=== PATIENT | female | born 1935 | race Hispanic/Latino ===

== ENCOUNTER 2017-05-04 03:15 | Inpatient (IN) | payer OTHER ==
[~2017-05-04] VITALS: Ht 175.3 cm; Wt 83.9 kg
[2017-05-04] VITALS (29 sets, daily range): BP systolic 64–156; BP diastolic 38–110
[~2017-05-04 03:15] MED LIST: ALEVE220 M1 PO; CALCIUM WITH V1 EAC1 PO; COQ10 SG 100 S1 EACH PO; DORZOLAMIDE-TIM10 ML OU; ENALAPRIL MALEA20 MG PO; FISH OIL PO; GEMFIBROZIL600 MG PO; HYDROCHLOROTHIA25 MG PO; MAGNESIUM PO; METOPROLOL TART50 MG PO; OMEPRAZOLE40 MG PO; ONGLYZA5 MG PO; SIMVASTATIN20 MG PO; VICODIN HP 10-1 EACH PO
[2017-05-04] MEDS ORDERED: SODIUM CHLORIDE 0.9% 1000ML 1,000 ML IV ONE ×3 (03:30→22:15)
[2017-05-04] MEDS ORDERED: ALBUTEROL/IPRATROPIUM 3 ML NEB NEB ONE (03:30)
[2017-05-04] MEDS ORDERED: METHYLPREDNISOLONE SOD SUCC 125 MG/2ML VIAL IV ONE (03:45)
[2017-05-04 03:46] LABS: BASOPHILS % 0.1 % (0.0-1.0); HEMATOCRIT 36.1 % (34.2-44.1); HEMOGLOBIN 12.1 g/dL (12.0-16.0); LYMPHOCYTES # (AUTO) 0.8 (1.0-3.2); LYMPHOCYTES % 7.7 % (18.0-39.1); MEAN CORPUSCULAR HEMOGLOBIN 30.6 pg (28-32); MEAN CORPUSCULAR HGB CONC 33.5 g/dL (31-35); MEAN CORPUSCULAR VOLUME 91.2 fL (81-99); MONOCYTES # (AUTO) 0.8 (0.2-0.8); MONOCYTES % 7.7 % (4.4-11.3); NEUTROPHILS # (AUTO) 8.4 (2.1-6.9); NEUTROPHILS % 82.6 % (38.7-80.0); PLATELET COUNT 488 x10e3/uL (140-360); RED BLOOD COUNT 3.96 x10e6/uL (3.6-5.1); RED CELL DISTRIBUTION WIDTH 12.8 % (11.7-14.4)
[2017-05-04 03:53] LABS: BILIRUBIN,URINE NEGATIVE (NEGATIVE); KETONES,URINE NEGATIVE (NEGATIVE); LEUKOCYTE ESTERASE ,URINE NEGATIVE (NEGATIVE); NITRITE,URINE NEGATIVE (NEGATIVE); URINE UROBILINOGEN 0.2 mg/dL (0.2 - 1)
[2017-05-04 03:54] LABS: CLARITY,URINE SL CLOUDY (CLEAR); COLOR,URINE YELLOW (YELLOW); PROTEIN,URINE DIPSTICK 1+ (NEGATIVE)
[2017-05-04 04:04] LABS: AMORPHOUS SEDIMENT,URINE MANY (FEW); BACTERIA,URINE MODERATE /HPF; EPITHELIAL CELLS,URINE RARE /LPF; RBC,URINE 0-5 /HPF (0-5); WBC,URINE (MAN) 0-5 /HPF (0-5)
[2017-05-04] MEDS ORDERED: ALBUTEROL SULF 0.083% NEB SOLN 3 ML NEB NEB STA (04:04)
[2017-05-04 04:05] LABS: ALBUMIN 2.1 g/dL (3.5-5.0); ALBUMIN/GLOBULIN RATIO 0.4 (0.8-2.0); ANION GAP 23.1 mmol/L (8-16); CALCIUM 9.8 mg/dL (8.4-10.2); CREATININE, SERUM 2.59 mg/dL (0.57-1.11); POTASSIUM 4.1 mmol/L (3.5-5.1)
[2017-05-04] MEDS ORDERED: TOUJEO SC (04:10)
[2017-05-04 04:11] LABS: CREATINE KINASE MB 2.6 ng/mL (0.00-5.00); TROPONIN I 0.024 ng/mL (0-0.300)
[2017-05-04] MEDS ORDERED: GLIPIZIDE5 MG PO (04:11)
[2017-05-04] MEDS ORDERED: OMEPRAZOLE40 MG PO (04:11)
[2017-05-04] MEDS ORDERED: GEMFIBROZIL600 MG PO (04:11)
[2017-05-04] MEDS ORDERED: SIMVASTATIN20 MG PO (04:12)
[2017-05-04] MEDS ORDERED: METOPROLOL TART25 MG PO (04:12)
[2017-05-04] MEDS ORDERED: ALENDRONATE SOD70 MG PO (04:13)
[2017-05-04] MEDS ORDERED: DIOVAN HCT 1601 EACH PO (04:13)
[2017-05-04] MEDS ORDERED: LATANOPROST2.5 ML OP (04:14)
[2017-05-04] MEDS ORDERED: INSULIN REGULAR, HUMAN 3ML VL 1 UNIT in SODIUM CHLORIDE 0.9% 100 ML IV SCH ×2 (04:15)
[2017-05-04] MEDS ORDERED: DORZOLAMIDE-TIM10 ML OP (04:15)
[2017-05-04] MEDS ORDERED: POTASSIUM CHLORIDE 20MEQ/100ML 200 ML IV PRN (04:15)
[2017-05-04] MEDS ORDERED: INSULIN DETEMIR 100 UNIT/ML PEN SQ PRN (04:15)
[2017-05-04] MEDS ORDERED: MOTRIN200 MG PO (04:16)
[2017-05-04] MEDS ORDERED: SODIUM CHLORIDE 0.9% 100 ML 100 ML ONE (04:16)
[2017-05-04] MEDS ORDERED: INSULIN REGULAR, HUMAN 100 UNIT/1 ML 3ML VIAL ONE ×2 (04:18→08:29)
--- NOTE | 2017-05-04 04:20 | Diagnostic Imaging Report ---
CHEST SINGLE (PORTABLE), 05/04/2017 3:29 AM Technique: CHEST SINGLE (PORTABLE) Comparison: 12/08/2012 Clinical history: Cough, shortness of breath Findings: See Impression Impression: 1. Mildly enlarged cardiomediastinal silhouette, likely accentuated by portable technique 2. Diffuse bilateral heterogeneous pulmonary opacities, which may reflect infection and/or edema. More nodular 3 cm right midlung masslike opacity/consolidation. Attention on follow-up upright PA and lateral. 3. Probable small pleural effusions. Signed by: Dr Monique Michael MD on 05/04/2017 4:16 AM
[2017-05-04] MEDS: MAGNESIUM SULF 1GRAM/DEXTROSE 100 ML IV PRN ×2 (04:28→14:00)
[2017-05-04] MEDS: SODIUM CHLORIDE 0.9% 1000ML 1,000 ML IV SCH ×5 (04:28→19:48)
[2017-05-04] MEDS ORDERED: FUROSEMIDE INJ 10 MG/ML 4 ML VIAL IV ONE (04:30)
[2017-05-04] MEDS ORDERED: FUROSEMIDE INJ 10 MG/ML 4 ML VIAL ONE (04:36)
--- NOTE | 2017-05-04 05:33 | Diagnostic Imaging Report ---
EXAM: CT CHEST WO DATE: 05/04/2017 4:27 AM INDICATION: Cough, shortness of breath. \S\eval changes seen on cxr \S\Y COMPARISON: None TECHNIQUE: Multidetector CT scanning of the chest was performed. Coronal and sagittal multiplanar reformations were obtained. IV Contrast: None FINDINGS: LUNGS AND PLEURA: There are extensive bilateral consolidative opacities most notable in the left lower lobe and to a lesser extent right middle and lower lobes and lingula. Multifocal nodular opacities. No pleural effusion. HEART, MEDIASTINUM, VESSELS: Normal heart size without pericardial effusion. Severe coronary artery and moderate aortic atherosclerotic calcification. Main pulmonary artery is upper limits of normal, 3 cm UPPER ABDOMEN: Unremarkable. MUSCULOSKELETAL: Chronic right proximal humeral fracture deformity with severe glenohumeral degenerative change. IMPRESSION: Multifocal pneumonia. Signed by: Dr Monique Michael MD on 05/04/2017 5:29 AM
[2017-05-04] MEDS ORDERED: LEVOFLOXACIN 500MG/D5W 100ML 100 ML IV STA (05:42)
[2017-05-04] MEDS ORDERED: DORZOLAMIDE/TIMOLOL (OPTH SOL) 10 ML DRPETTE OP PRN (05:45)
[2017-05-04] MEDS ORDERED: LEVOFLOXACIN 750MG/DEXTROSE PREMIX BAG 150ML IV SCH (05:45)
[2017-05-04] MEDS ORDERED: ONDANSETRON HCL INJ 2 MG/ML VIAL IV PRN (05:45)
[2017-05-04 07:52] LABS: ANION GAP 19.4 mmol/L (8-16); CALCIUM 9.2 mg/dL (8.4-10.2); CREATININE, SERUM 2.38 mg/dL (0.57-1.11); MAGNESIUM 1.5 MG/DL (1.3-2.1); POTASSIUM 3.4 mmol/L (3.5-5.1)
[2017-05-04] MEDS ORDERED: SODIUM CHLORIDE 0.9% 50ML 50 ML ONE (08:30)
[2017-05-04] MEDS: INSULIN REGULAR, HUMAN 3ML VL 100 UNIT in SODIUM CHLORIDE 0.9% 99 ML IV SCH ×4 (08:31→14:49)
[2017-05-04] MEDS: DEXTROSE 5%/0.45% SOD CHL 1,000 ML IV SCH ×2 (08:59→14:46)
[2017-05-04] MEDS ORDERED: METOPROLOL TARTRATE 25 MG TAB PO SCH (09:00)
[2017-05-04] MEDS ORDERED: VALSARTAN PO SCH (09:00)
[2017-05-04] MEDS ORDERED: PANTOPRAZOLE SOD 40 MG TABEC PO SCH (09:00)
[2017-05-04] MEDS ORDERED: HYDROCHLOROTHIAZIDE PO SCH (09:00)
[2017-05-04] MEDS ORDERED: VALSARTAN 160 MG TAB PO SCH (09:00)
[2017-05-04] MEDS ORDERED: HYDROCHLOROTHIAZIDE 25 MG TAB PO SCH (09:00)
[2017-05-04] MEDS ORDERED: [UNRECOGNIZED DRUG - OTHER] PO SCH (09:00)
[2017-05-04] MEDS: ALBUTEROL SULF 0.083% NEB SOLN 3 ML NEB NEB SCH ×3 (09:02→23:43)
[2017-05-04] MEDS: IPRATROPIUM BROMIDE 0.02% 2.5 ML NEB NEB SCH ×3 (09:06→19:44)
[2017-05-04] MEDS: GEMFIBROZIL 600 MG TAB PO SCH (10:07)
[2017-05-04] MEDS: DORZOLAMIDE/TIMOLOL (OPTH SOL) 10 ML DRPETTE OP SCH ×2 (10:08→22:10)
[2017-05-04 10:57] LABS: ABG PCO2 40 mmHg (41-51); ABG PH 7.19 (7.31-7.41); ABG PO2 85 mmHg (80-105)
[2017-05-04 10:58] LABS: ABG HCO3 15 mmol/L (23-28)
--- NOTE | 2017-05-04 11:52 | Diagnostic Imaging Report ---
PROCEDURE:CHEST SINGLE (PORTABLE) TECHNIQUE:2 sequential portable AP views chest INDICATION:Postintubation COMPARISON:[facility], , CHEST SINGLE (PORTABLE), 05/04/2017, 1:38. FINDINGS: Interval intubation. The initial radiograph shows the endotracheal tube within the right mainstem bronchus; it was subsequently retracted to 3.3 cm above the matthias. Bilateral airspace opacities (left greater than right) with interval progression relative to May 04 at 1:38 AM. Stable cardiomegaly and central vascular enlargement. Intact skeleton; healed right humerus fracture associated degenerative changes at the glenohumeral joint. CONCLUSION: 1. Interval intubation with the endotracheal tube tip final position about 3.3 cm from the matthias. 2. Interval progression of multifocal airspace opacities relative to 1:38 AM suggesting evolving pneumonia developing pulmonary edema. 3. Stable cardiomegaly. No sizable pleural effusion. Dictated by: Alfa Maynard M.D. on 05/04/2017 at 12:00 Electronically approved by: Alfa Maynard M.D. on 05/04/2017 at 12:00
[2017-05-04] MEDS: FENTANYL CITRATE INJ 2,000 MCG in SODIUM CHLORIDE 0.9% 250ML 210 ML IV PRN (12:00)
[2017-05-04 12:07] LABS: ANION GAP 15.8 mmol/L (8-16); CALCIUM 8.7 mg/dL (8.4-10.2); CREATININE, SERUM 2.03 mg/dL (0.57-1.11); MAGNESIUM 1.4 MG/DL (1.3-2.1); POTASSIUM 3.8 mmol/L (3.5-5.1)
[2017-05-04] MEDS ORDERED: MIDAZOLAM HCL 2 MG/2 ML VIAL ONE (12:14)
[2017-05-04] MEDS: MIDAZOLAM HCL 2 MG/2 ML VIAL IV PRN ×2 (12:18→22:57)
[2017-05-04] MEDS ORDERED: VASOPRESSIN 100 UNIT in DEXTROSE 5% 100ML 100 ML IV SCH (12:30)
[2017-05-04 13:09] LABS: TROPONIN I 0.023 ng/mL (0-0.300)
[2017-05-04] MEDS ORDERED: SODIUM BICARBONATE 8.4% 50 ML VIAL IV STA ×2 (13:11→13:40)
[2017-05-04 13:14] LABS: ABG PCO2 42 mmHg (41-51); ABG PH 7.18 (7.31-7.41)
[2017-05-04 13:15] LABS: ABG HCO3 16 mmol/L (23-28); ABG PO2 112 mmHg (80-105)
[2017-05-04] MEDS ORDERED: SODIUM BICARBONATE 8.4% 150 ML in SODIUM CHLORIDE 0.9% 1000ML 1,000 ML IV ONE (13:30)
[2017-05-04] MEDS ORDERED: MAGNESIUM SULF 1GRAM/DEXTROSE 100 ML IV ONE (13:34)
[2017-05-04] MEDS ORDERED: SODIUM BICARBONATE 8.4% 150 ML in DEXTROSE 5% 1000ML 1,000 ML IV ONE ×2 (13:45→22:00)
--- NOTE | 2017-05-04 13:56 | Consultation ---
DATE OF CONSULTATION: May 04, 2017 CRITICAL CARE CONSULTATION REASON FOR THE CONSULT: ICU management, shortness of breath, DKA. HISTORY OF PRESENT ILLNESS: Ms. Auguste is an 81-year-old female who presented to the emergency room with the complaints of shortness of breath, cough going on for 4 days, progressively getting worse. She reports that the symptoms started 4 days ago with cough and then she started having shortness of breath. She is diabetic and was unable to take her insulin because she was too sick to take it. She is having chest discomfort by persistent coughing in the lower part of the chest, and she is having nausea but denies any abdominal pain or focal weakness. REVIEW OF SYSTEMS GENERAL: Denies any fever or chills. HEAD: Denies any head trauma or head injury. ENT: Denies any earache, nosebleed, throat pain. CVS: Chest discomfort. RESPIRATORY: Shortness of breath. GI: Nausea but no vomiting. REST OF THE REVIEW OF SYSTEMS: Negative except as in history of present illness. PAST MEDICAL HISTORY: Diabetes, hypertension. PAST SURGICAL HISTORY: Unknown. FAMILY HISTORY AND SOCIAL HISTORY: She is a lifelong nonsmoker. She lives by herself. She does not drink. PHYSICAL EXAMINATION VITALS: Temperature is 98. Pulse of 120 to 130. Blood pressure has been 150/57. Respiratory rate is around 28 to 36 per minute. She is on BiPAP with FIO2 of 75% and satting of 14/8. She is in moderate to severe respiratory distress. HEENT: Head atraumatic, normocephalic. Pupils are reactive. NECK: Supple. No JVD. Thyroid not enlarged. CHEST: Crackles bilaterally. HEART: S1 and S2 audible. ABDOMEN: Soft, nontender, nondistended. Bowel sounds audible. No hepatosplenomegaly. EXTREMITIES: No clubbing, cyanosis or edema. NEUROLOGICALLY: She is awake and alert, in moderate respiratory distress. LABS: White count of 10.1, hemoglobin 12.1, platelets 488. Chemistry: Sodium 139, potassium 3.4, chloride 108, BUN 61. Creatinine 2.38, was 2.59 at 3:30 a.m., and 7:30 a.m. it is 2.38. Glucose of 507. Anion gap of 19.4. Magnesium 1.2, second one is 1.5. CT of the chest: I reviewed the images, and it is showing multilobar pneumonia, dense consolidation in left lower lobe and right middle lobe and right lower lobe. Blood cultures and urine cultures are pending. ASSESSMENT/PLAN: Ms. Auguste is an 81-year-old female who presented with worsening shortness of breath. CT of the chest showing multilobar pneumonia. Labs are suggestive of acute kidney injury along with diabetic ketoacidosis with increased anion gap. CURRENT PROBLEMS 1. Multilobar pneumonia and sepsis with lactic acidosis and tachycardia. 2. Diabetic ketoacidosis. 3. Acute kidney injury, likely prerenal, dehydration. 4. History of hypertension. 5. Acute hypoxic respiratory failure. PLAN 1. Currently the patient's respiratory status is extremely precarious. I have increased the FIO2 to 70% and changed the IPAP and EPAP settings, observed her at bedside for 10 to 15 minutes, and patient reports that she is feeling somewhat better. However, I have explained to her and her daughter that she may need endotracheal intubation and ventilatory support if she does not improve. 2. Continue the patient on DKA protocol with IV insulin infusion along with IV fluids. 3. Electrolytes will be replaced per the protocol. Magnesium and potassium have been replaced. 4. Renal failure is improving with IV hydration. Will give another liter of normal saline bolus. 5. Patient has been resumed on diuretics, which I will discontinue. 6. I will start the patient on IV Zosyn along with IV Levaquin for multilobar pneumonia. Patient is diabetic, and a possibility of resistant organisms is there. 7. If okay with the primary team, will consider consulting Endocrinology. Critical care time spent, 50 minutes. Job#: [id number] EV
[2017-05-04] MEDS ORDERED: PIPER-TAZ 3.375 GM 50 ML IV SCH (14:00)
--- NOTE | 2017-05-04 14:15 | Diagnostic Imaging Report ---
PROCEDURE:CHEST XRAY LINE PLACEMENT COMPARISON:Chest x-ray, 05/04/17, 0910 hrs.. INDICATIONS:CENTRAL LINE PLACEMENT FINDINGS: Lines and tubes: Interval placement right IJ catheter extending to mid SVC. Stable position of ET tube. Stable moderately enlarged cardiac silhouette. There is increased airspace opacity in the mid and lower left lung and at the medial right lung base. Stable opacity in the right midlung adjacent to the minor fissure. There may be a small left pleural effusion. No pneumothorax. Upper abdomen unremarkable with no free air. No acute bony abnormality. CONCLUSION: 1. Interval placement of right IJ catheter extending to mid SVC. No pneumothorax. Stable appearance of ET tube. 2. Increased airspace opacity in the left mid and lower lung and at the right lung base may represent worsening edema or pneumonia. There may be an underlying effusion on the left. Dictated by: Esvin Gabriel M.D. on 05/04/2017 at 14:24 Electronically approved by: Esvin Gabriel M.D. on 05/04/2017 at 14:24
--- NOTE | 2017-05-04 14:15 | Diagnostic Imaging Report ---
Non-tunneled Central Venous Catheter Placement May 04, 2017 Pre-Procedure Diagnosis: Multiorgan failure. Post-procedure Diagnosis:Multiorgan failure. Pta: Sean Maynard Funeral Greeter: None Sedation: None. 1% lidocaine local anesthesia. Estimate blood loss: <5 mL Blood administered: None Complications: None Implants/Grafts: 16 cm 7-Turkmen 3 lumen CVC Specimen: None Procedure: Informed consent was obtained and the patient positioned supine in the Emergency Department. A timeout was performed, followed by preliminary ultrasound of the right internal jugular vein (see findings below). The right neck was prepped and draped in standard fashion. Using real-time ultrasound guidance a 18 gauge vascular needle was used to access the right internal jugular vein. An image was stored in the electronic medical record. A wire was advanced while monitoring the patient's cardiac rhythm and the needle exchanged for a non-tunneled central venous catheter using standard Salinger technique. At the end of the procedure the catheter was flushed, secured to the skin and a sterile dressing applied. The patient tolerated the procedure well and without immediate complication. Findings: Patent right internal jugular vein as demonstrated by normal ultrasound compressibility. Impression: Successful placement of a non-tunneled right internal jugular central venous catheter using ultrasound guidance. This report was generated with voice-recognition technology. Errors in network controller can occur. Please interpret accordingly and contact a radiologist if there are any questions regarding the report. Signed by: Dr. Alfa Maynard M.D. on 05/04/2017 2:12 PM
--- NOTE | 2017-05-04 14:15 | Diagnostic Imaging Report ---
Non-tunneled Central Venous Catheter Placement May 04, 2017 Pre-Procedure Diagnosis: Multiorgan failure. Post-procedure Diagnosis:Multiorgan failure. Varnish Maker: Sean Maynard Bulk Intake Worker: None Sedation: None. 1% lidocaine local anesthesia. Estimate blood loss: <5 mL Blood administered: None Complications: None Implants/Grafts: 16 cm 7-Welsh 3 lumen CVC Specimen: None Procedure: Informed consent was obtained and the patient positioned supine in the Emergency Department. A timeout was performed, followed by preliminary ultrasound of the right internal jugular vein (see findings below). The right neck was prepped and draped in standard fashion. Using real-time ultrasound guidance a 18 gauge vascular needle was used to access the right internal jugular vein. An image was stored in the electronic medical record. A wire was advanced while monitoring the patient's cardiac rhythm and the needle exchanged for a non-tunneled central venous catheter using standard Salinger technique. At the end of the procedure the catheter was flushed, secured to the skin and a sterile dressing applied. The patient tolerated the procedure well and without immediate complication. Findings: Patent right internal jugular vein as demonstrated by normal ultrasound compressibility. Impression: Successful placement of a non-tunneled right internal jugular central venous catheter using ultrasound guidance. This report was generated with voice-recognition technology. Errors in checker cashier can occur. Please interpret accordingly and contact a radiologist if there are any questions regarding the report. Signed by: Dr. Alfa Maynard M.D. on 05/04/2017 2:12 PM
[2017-05-04] MEDS: AZTREONAM (AZACTAM) 1 GM in WATER STERILE 10ML VIAL 10 ML IV SCH ×2 (14:16→22:56)
[2017-05-04] MEDS ORDERED: ACETAMINOPHEN 1000 MG/100 ML IV STA (14:18)
[2017-05-04] MEDS ORDERED: INSULIN REGULAR, HUMAN 3ML VL 300 UNIT in SODIUM CHLORIDE 0.45% 100 ML 300 ML IV SCH ×2 (14:23)
[2017-05-04] MEDS ORDERED: DEXTROSE 50% SYRINGE 50 ML IV PRN ×2 (14:30)
[2017-05-04] MEDS ORDERED: ACETAMINOPHEN 1000 MG/100 ML IV PRN (14:30)
--- NOTE | 2017-05-04 14:53 | Consultation ---
DATE OF CONSULTATION: May 04, 2017 ENDOCRINE CONSULTATION This is a patient of Dr. Laughlin and Dr. Dacosta. Thank you very much for referring this patient. HISTORY OF PRESENT ILLNESS: This is an 81-year-old female who is referred to me for evaluation of diabetic ketoacidosis. The patient is intubated at this time. Most of the history is available from the chart and from the patient's son. Patient is a known diabetic for almost 15 to 20 years and takes a combination of oral hypoglycemics at home including the Toujeo 28 at bedtime. She is also on metformin and glipizide 5 mg twice daily. Patient was doing relatively all right when about 4 to 5 weeks back she started having cough, chest congestion, which is getting progressively worse. She also has history of hypertension and hyperlipidemia. At the time of admission, her blood sugar was 708, her anion gap was 23.1 which is down to 15.8, and her BUN and creatinine were elevated. Her lactic acid level was also 625. PHYSICAL EXAMINATION: GENERAL: Today the patient is intubated. She is sedated. VITAL SIGNS: Her heart rate is around 78. Blood pressure 130/80 mmHg. HEENT: Examination essentially unremarkable. Thyroid is palpable. Clinically she is near euthyroid. CHEST: Bilateral vesicular breathing. She has mild bronchospasm. CARDIAC: Both 1st and 2nd heart sounds. There is no 3rd or 4th heart sound. Ejection sound grade 2/6. EXTREMITIES: Patient has evidence of diabetic sensory neuropathy in both lower extremities. CLINICAL IMPRESSION: 1. Diabetes mellitus type 2. 2. Diabetic ketoacidosis. 3. Pneumonia. 4. History of hypertension and hyperlipidemia. The plan at this time is to do a hemoglobin A1c, thyroid function test, and put her on insulin drip protocol. I would avoid giving her too much bicarb because of her hyponatremia. Monitor her blood sugars closely. Thanks again for referring this patient. I will be following this patient with you. Job#: [id number] ARTEM
[2017-05-04] MEDS ORDERED: INSULIN REGULAR, HUMAN 3ML VL 100 UNIT in SODIUM CHLORIDE 0.45% 100 ML 99 ML IV SCH ×2 (15:00)
[2017-05-04 15:01] LABS: FREE T4 (FREE THYROXINE) 0.98 ng/dL (0.8-1.8); THYROID STIMULATING HORMONE 0.33 uIU/mL (0.350-4.940)
--- NOTE | 2017-05-04 15:05 | Operative Report ---
DATE OF PROCEDURE: May 04, 2017 PREOPERATIVE DIAGNOSIS: Acute hypoxic respiratory failure. POSTOPERATIVE DIAGNOSIS: Acute hypoxic respiratory failure. PROCEDURE IN DETAIL: After induction with 30 mg of IV etomidate and 100 mg of succinylcholine, the patient was intubated. With a max 4 blade, first attempt with 7.5 endotracheal tube. End-tidal CO2 was observed. Postprocedure chest x-ray showed right main intubation. Endotracheal tube was pulled back 20 cm, and repeat x-ray is showing good position of the endotracheal tube. COMPLICATIONS: None. Job#: [id number] MN
--- NOTE | 2017-05-04 16:15 | Consultation ---
DATE OF CONSULTATION: May 04, 2017 NEPHROLOGY CONSULTATION REASON FOR CONSULTATION: Acute kidney injury, metabolic acidosis. This is an 81-year-old female who is known to have multiple medical problems including hypertension, diabetes and diastolic CHF. She was diagnosed with diabetes almost 4 years ago and recently, almost 2 years ago, was switched to insulin. In the last couple of weeks, she and her brother who live together have been sick with myalgias and cough. She has been having a productive cough with yellowish, greenish sputum, and she had a fever a few days ago. She felt subjective fever with sweats. She has been getting worse with shortness of breath, and she came for further evaluation. She was found to be hypoxic and with DKA. She got intubated by the pulmonary team. The creatinine was elevated with metabolic acidosis, and thus we are consulted. Currently, the patient is sedated on fentanyl and intubated. No GI or complaints in the last few weeks. PAST MEDICAL HISTORY: As mentioned above. PAST SURGICAL HISTORY: Status post hysterectomy. SOCIAL HISTORY: No smoking, alcohol or IV drug abuse. ALLERGIES: PENICILLIN, WITH RASH. FAMILY HISTORY: Positive for hypertension and diabetes. PHYSICAL EXAMINATION VITALS: Today, temperature 99.9, heart rate 106, blood pressure 92/57. GENERAL APPEARANCE: No acute distress. Intubated and sedated. HEAD, EARS, EYES, NECK: No lymphadenopathy. HEART: Regular rate and rhythm. LUNGS: Bilateral rales. ABDOMEN: Soft, nontender. EXTREMITIES: No edema. LABS: White count 10, hemoglobin 12.1. She had sodium 140, Potassium was 3.4 on admission, now 3.8. CO2 was 13, now 15. Her BUN is 59, and creatinine is coming down from 2.59 to 2.03. Her glucose on admission was 708, and it is coming down on insulin drip. A1c is 9. Calcium 8.7, magnesium 1.4. LFTs are normal. Troponin is 0.02. BNP is 498. TSH 0.3. Albumin 2.1. Cultures have been sent. IMAGING: Suggestive of multifocal pneumonia. ASSESSMENT AND PLAN 1. Acute kidney injury. The patient has a baseline of chronic kidney disease, stage 3. She might have been following with Dr. Dover as per her daughter. We are going to check our clinic records. 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 There might be slight decline in the setting of sepsis and pneumonia and diabetic ketoacidosis. The patient is on intravenous fluids, and her creatinine is already improving. She is making good urine output. We are going to check fractional excretion of sodium and renal ultrasound. Avoid nephrotoxins. As I look at the records, she was also taking ibuprofen p.r.n. for the fever and myalgias, so we will hold any nonsteroidal anti-inflammatory drugs. We are going to check serial lab work and electrolytes. 2. Diabetic ketoacidosis. The patient has an insulin drip. 3. Metabolic acidosis. To be started on IV bicarbonate with serial q.4 h. BMP and follow up closely. 4. Multifocal pneumonia on antibiotics. Pulmonary is on the case. She got intubated, given hypoxia on antibiotics. 5. Hypertension on admission. However, after intubation and being on fentanyl, the blood pressures are on the low side. Monitor closely. Give IV fluids. 6. Volume status. The patient is making urine. We are going to add strict ins and outs and monitor urine output, given the patient is getting aggressive IV hydration. Currently the patient is intubated, given respiratory failure with hypoxia. She is DKA on insulin drip. Give aggressive IV resuscitation with IV bicarbonate. Monitor electrolytes. Repeat potassium and magnesium aggressively and monitor closely. Also check for influenza A and B as the patient and other family members have been having similar symptoms recently. Thank you for the consult. We will update the primary team for further recommendations. Job#: [id number]
[2017-05-04 18:42] LABS: ANION GAP 14.9 mmol/L (8-16); CALCIUM 8.1 mg/dL (8.4-10.2); CREATININE, SERUM 1.88 mg/dL (0.57-1.11); MAGNESIUM 1.4 MG/DL (1.3-2.1); POTASSIUM 3.9 mmol/L (3.5-5.1)
[2017-05-04] MEDS ORDERED: ETOMIDATE 2 MG/ML 10 ML INJ IV ONE (18:52)
[2017-05-04] MEDS ORDERED: SUCCINYLCHOLINE 200 MG/10 ML SYR ONE (18:52)
[2017-05-04 18:59] LABS: CREATINE KINASE MB 1.4 ng/mL (0.00-5.00); TROPONIN I 0.02 ng/mL (0-0.300)
--- NOTE | 2017-05-04 19:08 | Diagnostic Imaging Report ---
PROCEDURE:US RETROPERITONEAL ( KIDNEY ). COMPARISON:None. INDICATIONS:DILIP FINDINGS:Grayscale and color flow Doppler ultrasound of the kidneys and urinary bladder was performed. Right kidney: 10.6 x 5.3 x 4.5 cm. Cortical thickness 1.7 cm. Hyperechoic parenchyma. No hydronephrosis or contour deforming mass. Left kidney: 10.6 x 5.1 x 5.0 cm. Cortical thickness 1.5 cm. Hyperechoic parenchyma. No hydronephrosis or contour deforming mass. Urinary bladder: Decompressed with Yates catheter. CONCLUSION:No hydronephrosis or contour deforming renal mass. Echogenic renal cortex bilaterally which may be seen with medical renal disease. Dictated by: Esvin Gabriel M.D. on 05/04/2017 at 19:17 Electronically approved by: Esvin Gabriel M.D. on 05/04/2017 at 19:17
--- NOTE | 2017-05-04 19:30 | History and Physical ---
CHIEF COMPLAINT: Shortness of breath, found to be in DKA now, intubated. HISTORY OF PRESENT ILLNESS: An 81-year-old female currently intubated and information is being obtained from the ED note as well as the other consultants who came into the ED with complaints of shortness of breath ongoing for the last 4 days. According to the reports, the patient has been having cough, congestion and progressively getting worse over the last several days with underlying wheezing. The patient reports having increased urine output as well and polyphagia and polydipsia. The patient is diabetic and was unable to take her insulin because she was too sick to take it. The patient was found to be in DKA while in the ED and started on insulin protocol for DKA. The patient's respiratory status continued to deteriorate in which pulmonary critical care intubated the patient. REVIEW OF SYSTEMS: I am unable to obtain this at the current moment due to the patient being intubated and sedated. ALLERGIES: PENICILLIN. MEDICATIONS: Please see medication reconciliation form. PAST MEDICAL HISTORY: Diabetes, hypertension. PAST SURGICAL HISTORY: Unknown. FAMILY HISTORY: Unknown. SOCIAL HISTORY: According to the records, nonsmoker, lives by herself, no drugs, no alcohol. LABORATORY DATA: White count 10.1, hemoglobin 12, hematocrit 36, platelets 488,000. Chemistry: Sodium 140, potassium 3.8, chloride 113, bicarbonate 15, anion gap of 15, BUN 59, creatinine 2. Glucose on admission was 708 and now currently 191. Hemoglobin A1c was 9. Lactic acid on admission 65,then 50. LFTs were normal. Troponin negative x2. TSH 0.33. Urinalysis: Moderate amount of bacteria. Negative leukocyte esterase. Negative nitrites. Influenza negative. Microbiology: Blood and urine cultures pending. IMAGING: Chest x-ray enlarged cardiac silhouette, diffuse bilateral pulmonary opacities that may reflect infection and/or edema. CT chest multifocal pneumonia PHYSICAL EXAMINATION VITAL SIGNS: Temperature 99.9, pulse 95, respiratory rate 20, currently intubated and sedated. GENERAL: Currently intubated and sedated. HEENT: Head is normocephalic, atraumatic. Eyes: Pupils equal, round and reactive to light bilaterally. Throat had an ET tube. NECK: Supple with good range of motion. PULMONARY: Expiratory wheezing, fine crackles appreciated as well. CARDIOVASCULAR: Positive S1 and S2, no murmurs, rubs or gallops appreciated. ABDOMEN: Soft, nondistended, nontender to palpation. Bowel sounds were present. MUSCULOSKELETAL: Unable to obtain, currently intubated. NEUROLOGIC: Intubated. SKIN: Intact. Warm to touch. Good capillary refill. EXTREMITIES: No edema. Good range of motion. PSYCHIATRIC: Currently intubated. IMPRESSION 1. Acute respiratory failure, now intubated and sedated. 2. Multilobar pneumonia. 3. Sepsis with underlying lactic acidosis. 4. Diabetic ketoacidosis. 5. Acute kidney injury, likely dehydration with prerenal azotemia. 6. Hypertension. 7. Prophylaxis. PLAN: Currently the patient is intubated and sedated. Will be admitted to the ICU. Pulmonary, critical care has been consulted. She is on broad-spectrum antibiotics. Blood and urine cultures are pending. In relation to her DKA, she is on DKA protocol. Current point of care, glucose is 191. Will continue with the same protocol. She is currently on D5 with 3 amps of bicarbonate. Nephrology was consulted due to the underlying acidosis. She is also oliguric at this moment. At this time, pulmonary critical care, endocrinology as well as nephrology have been consulted for further evaluation and management. Will continue the same plan of care. She will be admitted to the ICU. There was no family at bedside when I evaluated her. Job#: [id number]
[2017-05-04] MEDS ORDERED: MAGNESIUM SULFATE 2GM/50ML 50 ML IV ONE (20:00)
[2017-05-04 20:41] LABS: ABG HCO3 21 mmol/L (23-28); ABG PCO2 45 mmHg (41-51); ABG PH 7.27 (7.31-7.41); ABG PO2 99 mmHg (80-105)
[2017-05-04] MEDS: SIMVASTATIN 20 MG TAB PO SCH (21:00)
[2017-05-04] MEDS ORDERED: NOREPINEPHRINE BITARTRATE/ NS 250 ML IV PRN (21:15)
[2017-05-04] MEDS: LATANOPROST(OPTH) 2.5 ML BTL OP SCH (22:10)
[2017-05-04 23:30] LABS: CALCIUM 8.3 mg/dL (8.4-10.2); CREATININE, SERUM 1.89 mg/dL (0.57-1.11)
[2017-05-05] VITALS (116 sets, daily range): BP systolic 70–227; BP diastolic 40–185
[2017-05-05] MEDS: SODIUM CHLORIDE 0.9% 1000ML 1,000 ML IV SCH ×7 (00:09→23:11)
[2017-05-05] MEDS: DEXTROSE 5%/0.45% SOD CHL 1,000 ML IV SCH ×3 (00:09→20:09)
[2017-05-05 02:36] LABS: ANION GAP 15.1 mmol/L (8-16); CALCIUM 7.9 mg/dL (8.4-10.2); CREATININE, SERUM 1.87 mg/dL (0.57-1.11); POTASSIUM 4.1 mmol/L (3.5-5.1)
[2017-05-05] MEDS: ALBUTEROL SULF 0.083% NEB SOLN 3 ML NEB NEB SCH ×6 (02:42→23:05)
[2017-05-05] MEDS: IPRATROPIUM BROMIDE 0.02% 2.5 ML NEB NEB SCH ×4 (02:42→18:43)
[2017-05-05] MEDS: LEVOFLOXACIN 500MG/D5W 100ML 100 ML IV SCH (05:57)
[2017-05-05 06:23] LABS: HEMATOCRIT 29.1 % (34.2-44.1); LYMPHOCYTES # (AUTO) 0.4 (1.0-3.2); MEAN CORPUSCULAR HEMOGLOBIN 30.4 pg (28-32); MEAN CORPUSCULAR HGB CONC 34.4 g/dL (31-35); MEAN CORPUSCULAR VOLUME 88.4 fL (81-99); MONOCYTES # (AUTO) 0.4 (0.2-0.8); MONOCYTES % 2.8 % (4.4-11.3); NEUTROPHILS # (AUTO) 12.4 (2.1-6.9); NEUTROPHILS % 92.4 % (38.7-80.0); PLATELET COUNT 349 x10e3/uL (140-360); RED BLOOD COUNT 3.29 x10e6/uL (3.6-5.1)
[2017-05-05 06:33] LABS: INR 1.27; PROTHROMBIN TIME 16.6 seconds (11.9-14.5)
[2017-05-05 06:42] LABS: ALBUMIN 1.3 g/dL (3.5-5.0); ALBUMIN/GLOBULIN RATIO 0.3 (0.8-2.0); ANION GAP 14.9 mmol/L (8-16); CALCIUM 8.1 mg/dL (8.4-10.2); CREATININE, SERUM 1.84 mg/dL (0.57-1.11); MAGNESIUM 1.9 MG/DL (1.3-2.1); PHOSPHORUS 1.4 MG/DL (2.3-4.7); POTASSIUM 3.9 mmol/L (3.5-5.1)
[2017-05-05] MEDS ORDERED: LEVOFLOXACIN 750MG/DEXTROSE PREMIX BAG 150ML IV SCH (07:00)
[2017-05-05] MEDS: DORZOLAMIDE/TIMOLOL (OPTH SOL) 10 ML DRPETTE OP SCH ×2 (09:17→22:15)
[2017-05-05 10:13] LABS: BAND NEUTROPHILS % (MANUAL) 14 %; LYMPHOCYTES % (MANUAL) 7 % (19-48); METAMYELOCYTES % (MANUAL) 1 % (0-0); MONOCYTES % (MANUAL) 6 % (3.4-9.0); NEUTROPHILS % (MANUAL) 72 % (40-74)
[2017-05-05 10:15] LABS: ANISOCYTOSIS SLIGHT; MICROCYTOSIS SLIGHT; PLATELET ESTIMATE SLIGHTLY INCREASED; PLATELET MORPHOLOGY COMMENT NORMAL; RBC MORPHOLOGY COMMENT NORMAL
[2017-05-05] MEDS: AZTREONAM (AZACTAM) 1 GM in WATER STERILE 10ML VIAL 10 ML IV SCH (11:00)
--- NOTE | 2017-05-05 11:43 | Diagnostic Imaging Report ---
PROCEDURE: A single AP view of the chest. COMPARISON: Portable chest 05/04/2017. INDICATIONS: INTUBATION FINDINGS: Lines/tubes: Endotracheal catheter is present with the tip projecting over the expected region of the trachea, projecting 4 cm from the matthias. Right internal jugular temporary central venous catheter with tip projecting over the expected region of the right atrium. Lungs: Bilateral multifocal airspace opacities. No parenchymal mass. Pleura: Small bilateral pleural effusions. No pneumothorax. Heart and mediastinum: The heart and the mediastinum are unremarkable. Atherosclerotic calcifications. Bones: No acute bony abnormality. Degenerative changes of the thoracic spine. IMPRESSION: Bilateral multifocal airspace opacifications may represent edema or pneumonia. Dictated by: Corky Guillaume M.D. on 05/05/2017 at 11:52 Electronically approved by: Corky Guillaume M.D. on 05/05/2017 at 11:52
[2017-05-05] MEDS ORDERED: VANCOMYCIN 1GM/NS 250 ML 250 ML IV ONE (11:45)
--- NOTE | 2017-05-05 13:39 | Diagnostic Imaging Report ---
PROCEDURE:X-RAY ABDOMEN - KUB COMPARISON:None. INDICATIONS:OGT PLACEMENT FINDINGS: Enteric feeding catheter is present with the tip projecting over the expected region of the gastric body. There is a non-obstructed bowel-gas pattern. There are no calcifications projected over the renal shadows, expected course of the ureters or bladder. There are no acute osseous abnormalities. The lung bases are clear. Degenerative changes of the lumbar spine. CONCLUSION: No acute radiographic abnormality. Dictated by: Corky Guillaume M.D. on 05/05/2017 at 13:47 Electronically approved by: Corky Guillaume M.D. on 05/05/2017 at 13:47
[2017-05-05 14:57] LABS: ABG PCO2 44 mmHg (41-51); ABG PH 7.39 (7.31-7.41); ABG PO2 96 mmHg (80-105)
[2017-05-05 14:58] LABS: ABG HCO3 27 mmol/L (23-28)
[2017-05-05] MEDS: GEMFIBROZIL 600 MG TAB PO SCH (16:09)
--- NOTE | 2017-05-05 20:04 | Diagnostic Imaging Report ---
EXAM: ABDOMEN-1VIEW (KUB), DATE: 05/05/2017 7:02 PM INDICATION: Tube placement COMPARISON: Chest radiograph and CT 05/04/2017 FINDINGS: LINES/TUBES: Orogastric tube tip and side hole overlie the expected gastric body. BOWEL PATTERN: No evidence for obstruction. SOFT TISSUES: No abnormal calcifications. No mass effect. LUNG BASES: Redemonstration of multifocal pneumonia. BONES: Convex curvature of the lumbar spine to the left. IMPRESSION: Orogastric tube tip and side hole overlie the expected gastric body. Signed by: DR. Carlos Nguyen MD on 05/05/2017 8:00 PM
[2017-05-05] MEDS: MIDAZOLAM HCL 2 MG/2 ML VIAL IV PRN (22:15)
[2017-05-05] MEDS: ACETAMINOPHEN 325 MG TAB PO PRN (22:15)
[2017-05-05] MEDS: LATANOPROST(OPTH) 2.5 ML BTL OP SCH (22:15)
[2017-05-05] MEDS: SIMVASTATIN 20 MG TAB PO SCH (22:15)
[2017-05-05 22:53] LABS: CALCIUM 7.7 mg/dL (8.4-10.2); CREATININE, SERUM 1.55 mg/dL (0.57-1.11); MAGNESIUM 1.9 MG/DL (1.3-2.1)
[2017-05-06] VITALS (62 sets, daily range): BP systolic 87–163; BP diastolic 43–116
[2017-05-06] MEDS: AZTREONAM (AZACTAM) 1 GM in WATER STERILE 10ML VIAL 10 ML IV SCH ×3 (00:01→22:56)
[2017-05-06] MEDS: ALBUTEROL SULF 0.083% NEB SOLN 3 ML NEB NEB SCH ×6 (03:02→23:30)
[2017-05-06] MEDS: IPRATROPIUM BROMIDE 0.02% 2.5 ML NEB NEB SCH ×4 (03:02→18:45)
[2017-05-06] MEDS: SODIUM CHLORIDE 0.9% 1000ML 1,000 ML IV SCH ×5 (04:03→18:23)
[2017-05-06] MEDS: DEXTROSE 5%/0.45% SOD CHL 1,000 ML IV SCH ×2 (04:03→15:23)
[2017-05-06 06:20] LABS: BASOPHILS # (AUTO) 0.1 (0.0-0.1); BASOPHILS % 0.9 % (0.0-1.0); EOSINOPHILS % 0.1 % (0.0-6.0); HEMATOCRIT 26.3 % (34.2-44.1); HEMOGLOBIN 8.9 g/dL (12.0-16.0); LYMPHOCYTES # (AUTO) 0.8 (1.0-3.2); LYMPHOCYTES % 6.2 % (18.0-39.1); MEAN CORPUSCULAR HEMOGLOBIN 30.3 pg (28-32); MEAN CORPUSCULAR HGB CONC 33.8 g/dL (31-35); MEAN CORPUSCULAR VOLUME 89.5 fL (81-99); MONOCYTES # (AUTO) 0.3 (0.2-0.8); MONOCYTES % 2.2 % (4.4-11.3); NEUTROPHILS % 89.1 % (38.7-80.0); PLATELET COUNT 228 x10e3/uL (140-360); RED BLOOD COUNT 2.94 x10e6/uL (3.6-5.1); RED CELL DISTRIBUTION WIDTH 13.5 % (11.7-14.4)
[2017-05-06] MEDS: LEVOFLOXACIN 500MG/D5W 100ML 100 ML IV SCH (06:20)
[2017-05-06 06:49] LABS: ALBUMIN/GLOBULIN RATIO 0.3 (0.8-2.0); ANION GAP 11.9 mmol/L (8-16); CALCIUM 7.7 mg/dL (8.4-10.2); CREATININE, SERUM 1.57 mg/dL (0.57-1.11); MAGNESIUM 1.9 MG/DL (1.3-2.1); PHOSPHORUS 1.6 MG/DL (2.3-4.7); POTASSIUM 3.9 mmol/L (3.5-5.1)
[2017-05-06] MEDS: PANTOPRAZOLE 40 MG 10ML VIAL IV SCH (09:09)
[2017-05-06] MEDS: GEMFIBROZIL 600 MG TAB PO SCH (09:10)
[2017-05-06] MEDS: DORZOLAMIDE/TIMOLOL (OPTH SOL) 10 ML DRPETTE OP SCH ×2 (09:10→21:02)
[2017-05-06 09:33] LABS: ABG HCO3 25 mmol/L (23-28); ABG PCO2 42 mmHg (41-51); ABG PH 7.38 (7.31-7.41); ABG PO2 78 mmHg (80-105)
[2017-05-06] MEDS ORDERED: ENOXAPARIN 30 MG/0.3 ML SYR SC SCH (11:30)
--- NOTE | 2017-05-06 11:39 | Diagnostic Imaging Report ---
CHEST SINGLE (PORTABLE), 05/06/2017 5:00 AM Technique: CHEST SINGLE (PORTABLE) Comparison: 05/04/2017 Clinical history: Intubated Findings: See Impression Impression: 1. Lines/Tubes: ET tube placement 5.5 cm above the matthias. NG tube extends subdiaphragmatically. Right IJ catheter overlies the deep right atrium. 2. Mild increase in bilateral pulmonary opacities in keeping with multifocal pneumonia. Signed by: Dr Monique Michael MD on 05/06/2017 6:50 AM
--- NOTE | 2017-05-06 11:48 | Diagnostic Imaging Report ---
Non-tunneled Central Venous Catheter Placement May 04, 2017 Pre-Procedure Diagnosis: Multiorgan failure. Post-procedure Diagnosis:Multiorgan failure. Psychologist Clinical: Sean Maynard Wire Twister: None Sedation: None. 1% lidocaine local anesthesia. Estimate blood loss: <5 mL Blood administered: None Complications: None Implants/Grafts: 16 cm 7-Mohawk 3 lumen CVC Specimen: None Procedure: Informed consent was obtained and the patient positioned supine in the Emergency Department. A timeout was performed, followed by preliminary ultrasound of the right internal jugular vein (see findings below). The right neck was prepped and draped in standard fashion. Using real-time ultrasound guidance a 18 gauge vascular needle was used to access the right internal jugular vein. An image was stored in the electronic medical record. A wire was advanced while monitoring the patient's cardiac rhythm and the needle exchanged for a non-tunneled central venous catheter using standard Salinger technique. At the end of the procedure the catheter was flushed, secured to the skin and a sterile dressing applied. The patient tolerated the procedure well and without immediate complication. Findings: Patent right internal jugular vein as demonstrated by normal ultrasound compressibility. Impression: Successful placement of a non-tunneled right internal jugular central venous catheter using ultrasound guidance. This report was generated with voice-recognition technology. Errors in safety representative can occur. Please interpret accordingly and contact a radiologist if there are any questions regarding the report. Signed by: Dr. Alfa Maynard M.D. on 05/04/2017 2:12 PM
[2017-05-06] MEDS ORDERED: POTASSIUM PHOSPHATE 20 MM in SODIUM CHLORIDE 0.9% 250ML 250 ML IV ONE (12:00)
[2017-05-06] MEDS: ALBUMIN HUMAN 50 ML IV SCH ×2 (12:23→20:37)
[2017-05-06] MEDS: VANCOMYCIN 1GM/NS 250 ML 250 ML IV SCH ×2 (12:23→23:57)
--- NOTE | 2017-05-06 12:42 | Diagnostic Imaging Report ---
History:Right-sided weakness, started today Comparison studies:None Technique: Axial images were obtained from the skull base to the vertex. Coronal and sagittal images reconstructed from the axial data. Intravenous contrast: None Findings: Scalp/skull: No abnormalities. Extra-axial spaces: No masses. No fluid collections. Brain sulci: Mildly prominent. Ventricles: Effacement of the left frontal horn and left lateral ventricle body due to mass effect. No hydrocephalus. Parenchyma: Cortical-based hypodensity in the posterior two thirds of the left frontal lobe, left parietal lobe, superior aspect of the left temporal lobe, posterior left insula and left lateral putamen. 1.2 cm hypodensity at the left caudate head and smaller hypodensities in the thalamocapsular region. Cortical-based hypodensity at the left posterior superior frontal gyrus. 1.2 cm hypodensity in the right frontal centrum semiovale. No hemorrhage. Left to right midline shift of approximately 4 mm. Hyperdense left M2 and M3 segments, concerning for embolus. Sellar/suprasellar region: No abnormalities. Craniocervical junction: Patent foramen magnum. No Chiari one malformation. Incidental findings: Atherosclerotic calcifications in the carotid siphons and vertebral arteries . Air-fluid level at the right maxillary and bilateral sphenoid sinuses. Impression: Large acute infarct in the left MCA distribution with more than 80% involvement with associated hyperdense M2 and M3 MCA branches, embolic phenomenon is suspected. Acute infarct in the posterior aspect of the left superior frontal gyrus and left caudate head, CRISSY territory. No hemorrhage. Mild right to left midline shift. Hypodensity in the right frontal centrum semiovale, concerning for acute lacunar infarct. Acute left maxillary and bilateral sphenoid sinusitis Chronic findings: 1. Mild generalized volume loss. 2. Mild supratentorial white matter small vessel ischemic changes. The above finding was reported and acknowledged by Dr. Mendenhall at 12:52 PM 05/06/2017 Signed by: DR Josh Sheriff M.D. on 05/06/2017 12:39 PM
[2017-05-06] MEDS ORDERED: ALBUMIN HUMAN 12.5GM / 50ML IV SCH (14:00)
--- NOTE | 2017-05-06 16:52 | Consultation ---
DATE OF CONSULTATION: May 06, 2017 at 1 p.m. NEUROLOGICAL CONSULTATION REASON FOR CONSULTATION: Stroke. This is an 81-year-old female who apparently lives alone. She was admitted with shortness of breath. Apparently, she has been having cough intermittently for several days until the shortness of breath got worse. She came to the emergency room and she started getting worse and was intubated and admitted to the unit with diagnosis of acute respiratory failure and multilobar pneumonia. Today, the patient has been intubated and sedated but they removed the sedation and they examined her and they found that she was not moving the right arm or the right leg. CT scan of the brain was ordered and there was found a left medial cerebral artery infarction, which is the reason why neurological consultation has been requested. PAST MEDICAL HISTORY: History of hypertension, diabetes mellitus type 2, GERD and glaucoma. PAST SURGICAL HISTORY: Noncontributory. ALLERGIES: NONCONTRIBUTORY. SOCIAL HISTORY: Does not smoke or drink. FAMILY HISTORY: Noncontributory. MEDICATIONS: List of medications has been reviewed in detail electronically. REVIEW OF SYSTEMS: Unable to perform because of the mental status. PHYSICAL EXAMINATION VITAL SIGNS: Blood pressure 132/90, pulse 82. LUNGS: Bilateral rales. ABDOMEN: No organomegaly. LOWER EXTREMITIES: No edema, no clubbing. NEUROLOGIC: The patient is now off sedation. She is comatose, unable to respond to verbal commands, to painful stimulation. She does some facial grimacing. On more painful stimulation, there is some withdrawal of the left leg. Plantar stimulation on the right side is a little withdrawal of the right foot with extension plantar response. Pupils are both rather small, sluggish. Doll's movements are depressed bilaterally. Corneal reflex present but depressed bilaterally. I reviewed the CT scan of the brain and the patient has rather large infarction involving the middle cerebral artery compromising the posterior frontal, parietal and temporal lobes with very mild mass affect. There is no bleeding. There is generalized volume loss. IMPRESSION 1. 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 Mild compression of the right lateral ventricle. No midline shift. 2. Acute respiratory failure. 3. Hypertension. 4. Bilateral pneumonia. 5. Diabetes mellitus type 2. PROGNOSIS: Poor. Explained to the family members in detail regarding the CT scan of the brain. She is off of sedation right now and blood pressure is stable. Will monitor closely. Job#: [id number] ZACK
--- NOTE | 2017-05-06 17:13 | Consultation ---
DATE OF CONSULTATION: CARDIOLOGY CONSULTATION REQUESTING PHYSICIAN: Dr. Laughlin/Dr. Dacosta. REASON FOR CONSULTATION: Rule out endocarditis. HISTORY OF PRESENT ILLNESS: Ms. Auguste is an 81-year-old lady with past medical history as listed below, was brought in with shortness of breath, cough and fever. She was noted to have pneumonia and was admitted to the hospital. She was also in diabetic ketoacidosis, was intubated on a vent. Patient had septic shock and was placed on pressors and antibiotics. She went on to develop a CVA. Her blood cultures were positive for Staphylococcus aureus, and I was consulted to rule out possible vegetation for possible embolic source of CVA. Patient is currently on a vent. Her family members are at the bedside. Most of the history is obtained from them, the chart and the nurse. REVIEW OF SYMPTOMS: Not obtainable. ALLERGIES: PENICILLIN. MEDICATIONS: See list. PAST MEDICAL HISTORY 1. History of hypertension. 2. History of renal insufficiency. 3. History of diabetes mellitus. SOCIAL HISTORY: Does not smoke or drink. FAMILY HISTORY: Noncontributory. PHYSICAL EXAMINATION GENERAL: A well-built and nourished lady, intubated on a vent. VITAL SIGNS: Heart rate is in the 90s. Blood pressure is 134/64. Respiratory rate is 18. HEENT: Atraumatic. Orotracheal tube in place. NECK: No JVD, bruit, thyromegaly, lymphadenopathy. CARDIOVASCULAR: First and second heart sounds heard. No murmurs, rubs or gallops were appreciated. CHEST: Decreased air entry at the bases. ABDOMINAL: Soft, nontender. EXTREMITIES: No edema. LABS: Sodium is 138, potassium is 3.9, chloride is 105, bicarb is 25, BUN is 70, creatinine is 1.5. Hemoglobin is 8.9, hematocrit is 26.3, platelets are 228, white count is 13.5. Total bilirubin is 0.3, AST is 25, ALT is 12, alk phos was 75. EKG shows sinus tach at 112 beats per minute, leftward axis, LVH, incomplete right bundle branch block, secondary ST-T changes. IMPRESSION 1. Pneumonia. 2. Respiratory failure. 3. Sepsis. 4. Cerebrovascular accident. 5. Anemia. 6. Renal insufficiency. 7. Diabetes mellitus. 8. History of hypertension. PLAN 1. Patient is suspected to have an embolic CVA. 2. Preliminary echocardiogram shows no evidence of vegetation, has mildly depressed LV function. 3. Continue with antibiotics. 4. Patient has been seen by Neurology. 5. Will consider a transesophageal echocardiogram next week. 6. Further cardiac workup depending on clinical course. I have discussed my impression and plan of management with the family who are at the bedside. As always, appreciate and thank you very much for your referrals. Job#: [id number] EV
[2017-05-06] MEDS: LATANOPROST(OPTH) 2.5 ML BTL OP SCH (21:02)
[2017-05-06] MEDS: SIMVASTATIN 20 MG TAB PO SCH (21:08)
[2017-05-06] MEDS ORDERED: AZTREONAM 1 GM VIAL ONE (22:47)
[2017-05-06] MEDS ORDERED: SODIUM CHLORIDE 0.9% 50ML 50 ML ONE (22:52)
[2017-05-07] VITALS (45 sets, daily range): BP systolic 114–192; BP diastolic 54–101
[2017-05-07] MEDS: ALBUTEROL SULF 0.083% NEB SOLN 3 ML NEB NEB SCH ×6 (02:05→22:30)
[2017-05-07] MEDS: IPRATROPIUM BROMIDE 0.02% 2.5 ML NEB NEB SCH ×4 (02:05→18:50)
[2017-05-07] MEDS: ALBUMIN HUMAN 50 ML IV SCH (04:42)
[2017-05-07] MEDS: SODIUM CHLORIDE 0.9% 1000ML 1,000 ML IV SCH (05:35)
[2017-05-07] MEDS: LEVOFLOXACIN 500MG/D5W 100ML 100 ML IV SCH (05:35)
[2017-05-07 06:16] LABS: ANION GAP 12.5 mmol/L (8-16); CALCIUM 7.9 mg/dL (8.4-10.2); CREATININE, SERUM 1.07 mg/dL (0.57-1.11); MAGNESIUM 1.6 MG/DL (1.3-2.1); PHOSPHORUS 2.3 MG/DL (2.3-4.7); POTASSIUM 3.5 mmol/L (3.5-5.1)
[2017-05-07] MEDS ORDERED: POTASSIUM CHLORIDE 20MEQ/15ML UDC NG ONE (07:45)
--- NOTE | 2017-05-07 09:35 | Diagnostic Imaging Report ---
Examination: CT BRAIN WITHOUT CONTRAST History:Stroke. Follow-up scan. Comparison studies:Head CT performed May 06, 2017. Technique: Axial images were obtained from the skull base to the vertex. Coronal and sagittal images reconstructed from the axial data. Intravenous contrast: None Findings: Scalp: No abnormalities. Bones: No fractures, blastic or lytic lesions. Brain sulci: Appropriate for age. Ventricles: Effacement of the frontal horn and body of the left lateral ventricle due to regional mass effect and midline shift from left middle cerebral artery territory infarct. No hydrocephalus. Extra-axial space: No abnormalities. Parenchyma: Again demonstrated is cortical based area of hypoattenuation in the posterior two thirds of the left frontal, parietal and superior temporal lobe as well as the posterior left insular cortex and left lateral putamen. There is an additional hypointense attenuation in the right frontal centrum semiovale, left caudate head and left thalamocapsular region. This results in midline shift of 4 mm to the right unchanged hyperdensity of the M2 and M3 segments of the left middle cerebral artery. No masses or hemorrhage. Sellar/suprasellar region: No abnormalities. Craniocervical junction: Patent foramen magnum. No Chiari one malformation. Incidental findings: Near complete opacification of the right sphenoid sinus and air-fluid level in the left sphenoid sinus. Impression: 1. No new abnormality, specifically, no hemorrhage or additional new area of acute infarct. No change from prior head CT performed May 06, 2017. 2. Unchanged nonhemorrhagic acute left middle cerebral artery territory infarct with unchanged 4 mm rightward midline shift and associated hyperdense M2 and M3 branches of the left middle cerebral artery. 3. Unchanged acute lacunar infarct in the right frontal centrum semiovale. 4. Unchanged mild chronic microvascular ischemic change. Signed by: Dr. Jordyn Martinez M.D. on 05/07/2017 9:31 AM
[2017-05-07] MEDS: FAMOTIDINE 20 MG/2 ML VIAL IV SCH (09:56)
[2017-05-07] MEDS: DORZOLAMIDE/TIMOLOL (OPTH SOL) 10 ML DRPETTE OP SCH ×2 (09:56→21:12)
[2017-05-07] MEDS: PANTOPRAZOLE 40 MG 10ML VIAL IV SCH (09:56)
[2017-05-07] MEDS: GEMFIBROZIL 600 MG TAB PO SCH (09:57)
[2017-05-07] MEDS ORDERED: POTASSIUM CHLORIDE 20MEQ/100ML 100 ML IV ONE (10:00)
[2017-05-07] MEDS: AZTREONAM (AZACTAM) 1 GM in WATER STERILE 10ML VIAL 10 ML IV SCH ×2 (10:37→23:42)
[2017-05-07] MEDS: FENTANYL CITRATE INJ 2,000 MCG in SODIUM CHLORIDE 0.9% 250ML 210 ML IV PRN (11:00)
[2017-05-07] MEDS ORDERED: NAFCILLIN IV SCH (14:00)
[2017-05-07] MEDS ORDERED: SODIUM CHLORIDE IV SCH (14:00)
[2017-05-07] MEDS ORDERED: [UNRECOGNIZED DRUG - OTHER] IV SCH (14:00)
[2017-05-07] MEDS ORDERED: CEFAZOLIN SOD 1 GM VIAL IV SCH (19:00)
[2017-05-07] MEDS ORDERED: SODIUM CHLORIDE 0.45% 100 ML 100 ML IV ONE (20:56)
[2017-05-07] MEDS ORDERED: INSULIN REGULAR, HUMAN 100 UNIT/1 ML 3ML VIAL ONE (20:57)
[2017-05-07] MEDS: LATANOPROST(OPTH) 2.5 ML BTL OP SCH (21:12)
[2017-05-07] MEDS: SIMVASTATIN 20 MG TAB PO SCH (21:13)
[2017-05-07] MEDS: CEFAZOLIN SOD 1 GM VIAL IV SCH (21:23)
[2017-05-07] MEDS ORDERED: MINERAL OIL 132 ML BTL PR ONE (22:14)
[2017-05-07] MEDS ORDERED: MAGNESIUM HYDROXIDE 30 ML UDC ONE (22:17)
[2017-05-07] MEDS ORDERED: OSELTAMIVIR PHOSPHATE 75 MG CAP ONE (22:47)
[2017-05-07] MEDS ORDERED: AZTREONAM 1 GM VIAL ONE (23:34)
[2017-05-07] MEDS ORDERED: SODIUM CHLORIDE 0.9% 50ML 50 ML ONE (23:40)
[2017-05-08] VITALS (43 sets, daily range): BP systolic 106–182; BP diastolic 46–141
[2017-05-08] MEDS: ALBUTEROL SULF 0.083% NEB SOLN 3 ML NEB NEB SCH ×6 (02:30→22:35)
[2017-05-08] MEDS: IPRATROPIUM BROMIDE 0.02% 2.5 ML NEB NEB SCH ×5 (02:30→22:35)
[2017-05-08] MEDS: CEFAZOLIN SOD 1 GM VIAL IV SCH ×3 (05:21→21:20)
[2017-05-08] MEDS: LEVOFLOXACIN 500MG/D5W 100ML 100 ML IV SCH (05:21)
--- NOTE | 2017-05-08 06:29 | Diagnostic Imaging Report ---
CHEST SINGLE (PORTABLE), 05/08/2017 4:35 AM Technique: CHEST SINGLE (PORTABLE) Comparison: 05/06/2017 Clinical history: Possible aspiration Findings: See Impression Impression: 1. Lines/Tubes: NG tube retracted over the expected proximal esophagus. Stable ET tube 5.5 cm above the matthias and right IJ central venous catheter over the right atrium. 2. No significant change multifocal pulmonary opacities in keeping with pneumonia. 3. No significant effusion or pneumothorax. Signed by: Dr Monique Michael MD on 05/08/2017 6:26 AM
[2017-05-08 07:02] LABS: CALCIUM 8.8 mg/dL (8.4-10.2); CREATININE, SERUM 0.99 mg/dL (0.57-1.11); MAGNESIUM 1.4 MG/DL (1.3-2.1); PHOSPHORUS 3.5 MG/DL (2.3-4.7)
[2017-05-08] MEDS ORDERED: METOPROLOL TARTRATE INJ 1 MG/ML VIAL IV PRN (08:00)
[2017-05-08] MEDS: PANTOPRAZOLE 40 MG 10ML VIAL IV SCH (09:25)
[2017-05-08] MEDS: GEMFIBROZIL 600 MG TAB PO SCH (09:25)
[2017-05-08] MEDS: FAMOTIDINE 20 MG/2 ML VIAL IV SCH (09:25)
[2017-05-08] MEDS: DORZOLAMIDE/TIMOLOL (OPTH SOL) 10 ML DRPETTE OP SCH ×2 (09:25→20:26)
[2017-05-08] MEDS: AZTREONAM (AZACTAM) 1 GM in WATER STERILE 10ML VIAL 10 ML IV SCH ×2 (11:12→23:04)
[2017-05-08] MEDS ORDERED: FUROSEMIDE INJ 10 MG/ML 4 ML VIAL IV ONE (13:00)
[2017-05-08] MEDS: LATANOPROST(OPTH) 2.5 ML BTL OP SCH (20:26)
[2017-05-08] MEDS: SIMVASTATIN 20 MG TAB PO SCH (20:26)
--- NOTE | 2017-05-08 21:17 | Diagnostic Imaging Report ---
CHEST SINGLE (PORTABLE), 05/08/2017 8:49 PM Technique: CHEST SINGLE (PORTABLE) Comparison: 05/08/2017 Clinical history: \S\ETT securing device was loose, ETT placement confirmation \[id number] \[id number] Findings: See Impression Impression: 1. Lines/Tubes: NG tube advancement subdiaphragmatically. ET tube is poorly visualized due to overlying lines and leads; recommend repeat. Right IJ central venous catheter over the right atrium. 2. No significant change multifocal pulmonary opacities in keeping with pneumonia. 3. No significant effusion or pneumothorax. Signed by: Dr Monique Michael MD on 05/08/2017 9:14 PM
--- NOTE | 2017-05-08 21:18 | Diagnostic Imaging Report ---
ABDOMEN-1VIEW (KUB) Clinical history: NG-tube replacement Technique: AP view abdomen Comparison: 05/05/2017 Findings: Abdomen: Nonobstructive bowel gas pattern. Multilevel degenerative changes and levoscoliosis of the lumbar spine. Impression: NG tube terminates over the expected gastric body. Signed by: Dr Monique Michael MD on 05/08/2017 9:15 PM
[2017-05-08] MEDS: FUROSEMIDE INJ 10 MG/ML 4 ML VIAL IV SCH (21:20)
--- NOTE | 2017-05-08 22:40 | Diagnostic Imaging Report ---
CHEST SINGLE (PORTABLE), 05/08/2017 9:56 PM Technique: CHEST SINGLE (PORTABLE) Comparison: 05/08/2017 Clinical history: \S\ET placement verification. Recommended for a repeat due to poor visualization Findings: See Impression Impression: 1. Lines/Tubes: NG tube extends subdiaphragmatically. ET tube 3.9 cm above the matthias. Right IJ central venous catheter over the right atrium. 2. No significant change multifocal pulmonary opacities in keeping with pneumonia. 3. No significant effusion or pneumothorax. Left upper hemithorax skin fold Signed by: Dr Monique Michael MD on 05/08/2017 10:37 PM
[2017-05-09] VITALS (49 sets, daily range): BP systolic 102–149; BP diastolic 43–67
[2017-05-09] MEDS: ALBUTEROL SULF 0.083% NEB SOLN 3 ML NEB NEB SCH ×6 (02:25→22:32)
[2017-05-09] MEDS: LEVOFLOXACIN 500MG/D5W 100ML 100 ML IV SCH (05:17)
[2017-05-09] MEDS: CEFAZOLIN SOD 1 GM VIAL IV SCH ×3 (05:17→21:26)
[2017-05-09] MEDS: FUROSEMIDE INJ 10 MG/ML 4 ML VIAL IV SCH ×3 (05:17→21:26)
[2017-05-09 06:29] LABS: BASOPHILS # (AUTO) 0.1 (0.0-0.1); BASOPHILS % 0.3 % (0.0-1.0); EOSINOPHILS # (AUTO) 0.1 (0.0-0.4); EOSINOPHILS % 0.5 % (0.0-6.0); HEMATOCRIT 27.4 % (34.2-44.1); HEMOGLOBIN 8.9 g/dL (12.0-16.0); LYMPHOCYTES # (AUTO) 0.9 (1.0-3.2); LYMPHOCYTES % 6.1 % (18.0-39.1); MEAN CORPUSCULAR HEMOGLOBIN 29.8 pg (28-32); MEAN CORPUSCULAR HGB CONC 32.5 g/dL (31-35); MEAN CORPUSCULAR VOLUME 91.6 fL (81-99); MONOCYTES # (AUTO) 0.8 (0.2-0.8); MONOCYTES % 5.2 % (4.4-11.3); NEUTROPHILS # (AUTO) 12.9 (2.1-6.9); NEUTROPHILS % 85.1 % (38.7-80.0); PLATELET COUNT 197 x10e3/uL (140-360); RED BLOOD COUNT 2.99 x10e6/uL (3.6-5.1); RED CELL DISTRIBUTION WIDTH 13.6 % (11.7-14.4)
[2017-05-09 07:04] LABS: ANION GAP 14.8 mmol/L (8-16); CALCIUM 8.8 mg/dL (8.4-10.2); CREATININE, SERUM 1.26 mg/dL (0.57-1.11); MAGNESIUM 1.3 MG/DL (1.3-2.1); PHOSPHORUS 4.9 MG/DL (2.3-4.7); POTASSIUM 3.8 mmol/L (3.5-5.1)
[2017-05-09] MEDS: IPRATROPIUM BROMIDE 0.02% 2.5 ML NEB NEB SCH ×4 (07:18→22:32)
[2017-05-09] MEDS: DORZOLAMIDE/TIMOLOL (OPTH SOL) 10 ML DRPETTE OP SCH ×2 (09:30→19:32)
[2017-05-09] MEDS: PANTOPRAZOLE 40 MG 10ML VIAL IV SCH (09:30)
[2017-05-09] MEDS: GEMFIBROZIL 600 MG TAB PO SCH (09:30)
[2017-05-09] MEDS: FAMOTIDINE 20 MG/2 ML VIAL IV SCH (09:30)
[2017-05-09 09:39] LABS: BAND NEUTROPHILS % (MANUAL) 2 %; EOSINOPHILS % (MANUAL) 1 % (0-7); LYMPHOCYTES % (MANUAL) 6 % (19-48); MONOCYTES % (MANUAL) 8 % (3.4-9.0); MYELOCYTES % (MANUAL) 2 % (0-0); NEUTROPHILS % (MANUAL) 76 % (40-74); NUCLEATED RED BLOOD CELLS 1; PROMYELOCYTES % (MANUAL) 1 % (0-0)
[2017-05-09 09:40] LABS: HYPOCHROMASIA SLIGHT; PLATELET ESTIMATE ADEQUATE; PLATELET MORPHOLOGY COMMENT NORMAL; RBC MORPHOLOGY COMMENT NORMAL
[2017-05-09] MEDS: AZTREONAM (AZACTAM) 1 GM in WATER STERILE 10ML VIAL 10 ML IV SCH ×2 (12:26→22:21)
[2017-05-09] MEDS: SIMVASTATIN 20 MG TAB PO SCH (19:33)
[2017-05-09] MEDS: LATANOPROST(OPTH) 2.5 ML BTL OP SCH (19:33)
[2017-05-10] VITALS (49 sets, daily range): BP systolic 102–168; BP diastolic 44–93
[2017-05-10] MEDS: ALBUTEROL SULF 0.083% NEB SOLN 3 ML NEB NEB SCH ×5 (02:40→19:00)
[2017-05-10] MEDS: CEFAZOLIN SOD 1 GM VIAL IV SCH ×3 (05:27→22:03)
[2017-05-10] MEDS: FUROSEMIDE INJ 10 MG/ML 4 ML VIAL IV SCH ×2 (05:27→14:00)
[2017-05-10] MEDS: LEVOFLOXACIN 500MG/D5W 100ML 100 ML IV SCH (05:27)
[2017-05-10] MEDS: FENTANYL CITRATE INJ 2,000 MCG in SODIUM CHLORIDE 0.9% 250ML 210 ML IV PRN (05:28)
[2017-05-10 05:34] LABS: BASOPHILS % 0.3 % (0.0-1.0); EOSINOPHILS # (AUTO) 0.1 (0.0-0.4); EOSINOPHILS % 0.9 % (0.0-6.0); HEMATOCRIT 26.7 % (34.2-44.1); HEMOGLOBIN 8.8 g/dL (12.0-16.0); LYMPHOCYTES # (AUTO) 1.1 (1.0-3.2); LYMPHOCYTES % 7.3 % (18.0-39.1); MEAN CORPUSCULAR VOLUME 91.1 fL (81-99); MONOCYTES # (AUTO) 0.4 (0.2-0.8); MONOCYTES % 2.7 % (4.4-11.3); NEUTROPHILS # (AUTO) 12.8 (2.1-6.9); NEUTROPHILS % 86.3 % (38.7-80.0); PLATELET COUNT 228 x10e3/uL (140-360); RED BLOOD COUNT 2.93 x10e6/uL (3.6-5.1); RED CELL DISTRIBUTION WIDTH 13.5 % (11.7-14.4)
[2017-05-10 05:54] LABS: ALBUMIN 1.3 g/dL (3.5-5.0); ALBUMIN/GLOBULIN RATIO 0.3 (0.8-2.0); ALKALINE PHOSPHATASE 92 IU/L (40-150); ANION GAP 14.6 mmol/L (8-16); BLOOD UREA NITROGEN 56 mg/dL (7-26); BUN/CREATININE RATIO 39 (6-25); CALCIUM 8.7 mg/dL (8.4-10.2); CARBON DIOXIDE 30 mmol/L (22-29); CHLORIDE 103 mmol/L (98-107); CREATININE, SERUM 1.44 mg/dL (0.57-1.11); EST GLOMERULAR FILTRATION RATE 35 ML/MIN (60-); GLUCOSE 99 mg/dL (74-118); POTASSIUM 3.6 mmol/L (3.5-5.1); SODIUM 144 mmol/L (136-145)
[2017-05-10 05:57] LABS: ALANINE AMINOTRANSFERASE < 6 IU/L (0-55)
[2017-05-10 05:59] LABS: MAGNESIUM 1.1 MG/DL (1.3-2.1)
[2017-05-10] MEDS: ACETAMINOPHEN 325 MG TAB PO PRN (06:14)
[2017-05-10] MEDS ORDERED: MAGNESIUM SULFATE 2GM/50ML 50 ML IV ONE (06:15)
--- NOTE | 2017-05-10 06:18 | Diagnostic Imaging Report ---
EXAMINATION: CHEST SINGLE (PORTABLE) INDICATION: Respiratory failure COMPARISON: 05/08/2017 FINDINGS: TUBES and LINES: Endotracheal tube, NG tube and right IJ central line catheters are stable. LUNGS: Lungs are not well inflated. Worsening confluent opacities bilaterally involving predominantly the right hemithorax in keeping with multifocal pneumonia PLEURA: Small bilateral pleural effusions HEART AND MEDIASTINUM: The cardiomediastinal silhouette is unremarkable. BONES AND SOFT TISSUES: No acute osseous lesion. Soft tissues are unremarkable. UPPER ABDOMEN: No free air under the diaphragm. IMPRESSION: Worsening bilateral airspace disease compatible with multifocal pneumonia Signed by: Dr. Kasi Cook M.D. on 05/10/2017 6:14 AM
[2017-05-10] MEDS: IPRATROPIUM BROMIDE 0.02% 2.5 ML NEB NEB SCH ×3 (07:15→19:00)
[2017-05-10 07:53] LABS: ANISOCYTOSIS SLIGHT; BAND NEUTROPHILS % (MANUAL) 3 %; EOSINOPHILS % (MANUAL) 1 % (0-7); HYPOCHROMASIA SLIGHT; LYMPHOCYTES % (MANUAL) 7 % (19-48); METAMYELOCYTES % (MANUAL) 1 % (0-0); MONOCYTES % (MANUAL) 2 % (3.4-9.0); NEUTROPHILS % (MANUAL) 85 % (40-74); PLATELET ESTIMATE ADEQUATE; PLATELET MORPHOLOGY COMMENT FEW LARGE; RBC MORPHOLOGY COMMENT NORMAL
[2017-05-10] MEDS: DORZOLAMIDE/TIMOLOL (OPTH SOL) 10 ML DRPETTE OP SCH ×2 (10:41→22:00)
[2017-05-10] MEDS: PANTOPRAZOLE 40 MG 10ML VIAL IV SCH (10:41)
[2017-05-10] MEDS: GEMFIBROZIL 600 MG TAB PO SCH (10:41)
[2017-05-10] MEDS: FAMOTIDINE 20 MG/2 ML VIAL IV SCH (10:41)
[2017-05-10 10:48] LABS: ABG HCO3 32 mmol/L (23-28); ABG PCO2 39 mmHg (41-51); ABG PH 7.53 (7.31-7.41); ABG PO2 78 mmHg (80-105)
[2017-05-10] MEDS: AZTREONAM (AZACTAM) 1 GM in WATER STERILE 10ML VIAL 10 ML IV SCH (11:59)
[2017-05-10] MEDS: SIMVASTATIN 20 MG TAB PO SCH (22:00)
[2017-05-10] MEDS: LATANOPROST(OPTH) 2.5 ML BTL OP SCH (22:00)
[2017-05-11] VITALS (33 sets, daily range): BP systolic 119–161; BP diastolic 45–103
[2017-05-11] MEDS: AZTREONAM (AZACTAM) 1 GM in WATER STERILE 10ML VIAL 10 ML IV SCH ×2 (01:20→10:18)
[2017-05-11] MEDS: ALBUTEROL SULF 0.083% NEB SOLN 3 ML NEB NEB SCH ×7 (03:30→23:10)
[2017-05-11] MEDS: CEFAZOLIN SOD 1 GM VIAL IV SCH ×2 (06:26→15:39)
[2017-05-11 06:29] LABS: ANION GAP 13.5 mmol/L (8-16); CALCIUM 9.1 mg/dL (8.4-10.2); CREATININE, SERUM 1.3 mg/dL (0.57-1.11); MAGNESIUM 1.5 MG/DL (1.3-2.1); PHOSPHORUS 3.7 MG/DL (2.3-4.7); POTASSIUM 3.5 mmol/L (3.5-5.1)
[2017-05-11] MEDS: IPRATROPIUM BROMIDE 0.02% 2.5 ML NEB NEB SCH ×4 (07:10→19:25)
[2017-05-11 08:01] LABS: BASOPHILS % 0.2 % (0.0-1.0); EOSINOPHILS % 0.2 % (0.0-6.0); HEMATOCRIT 28.3 % (34.2-44.1); HEMOGLOBIN 9.2 g/dL (12.0-16.0); LYMPHOCYTES # (AUTO) 1.1 (1.0-3.2); LYMPHOCYTES % 6.4 % (18.0-39.1); MEAN CORPUSCULAR HEMOGLOBIN 29.9 pg (28-32); MEAN CORPUSCULAR HGB CONC 32.5 g/dL (31-35); MEAN CORPUSCULAR VOLUME 91.9 fL (81-99); MONOCYTES # (AUTO) 0.7 (0.2-0.8); MONOCYTES % 4.2 % (4.4-11.3); NEUTROPHILS # (AUTO) 14.7 (2.1-6.9); NEUTROPHILS % 86.7 % (38.7-80.0); PLATELET COUNT 322 x10e3/uL (140-360); RED BLOOD COUNT 3.08 x10e6/uL (3.6-5.1); RED CELL DISTRIBUTION WIDTH 13.4 % (11.7-14.4)
--- NOTE | 2017-05-11 08:13 | Diagnostic Imaging Report ---
PROCEDURE: A single AP view of the chest. COMPARISON: [facility], , CHEST SINGLE (PORTABLE), 05/10/2017, 5:28. INDICATIONS: CONGESTION FINDINGS: Lines/tubes: Endotracheal tube has been removed. Right IJ central line and nasogastric tube are in unchanged positions. Lungs: Unchanged diffuse bilateral airspace opacities. Pleura: Small bilateral pleural effusions. Heart and mediastinum: The heart and the mediastinum are unremarkable. Bones: No acute bony abnormality. IMPRESSION: Unchanged bilateral airspace opacities compatible with multifocal pneumonia. Robert Ariza D.O. Dictated by: Robert Ariza D.O. on 05/11/2017 at 8:21 Electronically approved by: Robert Ariza D.O. on 05/11/2017 at 8:21
[2017-05-11] MEDS: FAMOTIDINE 20 MG/2 ML VIAL IV SCH (10:18)
[2017-05-11] MEDS: GEMFIBROZIL 600 MG TAB PO SCH (10:18)
[2017-05-11] MEDS: DORZOLAMIDE/TIMOLOL (OPTH SOL) 10 ML DRPETTE OP SCH ×2 (10:18→21:00)
[2017-05-11] MEDS: PANTOPRAZOLE 40 MG 10ML VIAL IV SCH (10:18)
[2017-05-11] MEDS ORDERED: POTASSIUM CHLORIDE 20MEQ/100ML 100 ML IV ONE (14:15)
[2017-05-11] MEDS: SIMVASTATIN 20 MG TAB PO SCH (21:00)
[2017-05-11] MEDS: LATANOPROST(OPTH) 2.5 ML BTL OP SCH (21:00)
[2017-05-12] VITALS (14 sets, daily range): BP systolic 132–170; BP diastolic 52–74
[2017-05-12] MEDS: AZTREONAM (AZACTAM) 1 GM in WATER STERILE 10ML VIAL 10 ML IV SCH ×2 (01:00→10:29)
[2017-05-12] MEDS: IPRATROPIUM BROMIDE 0.02% 2.5 ML NEB NEB SCH ×3 (02:30→12:12)
[2017-05-12] MEDS: ALBUTEROL SULF 0.083% NEB SOLN 3 ML NEB NEB SCH ×4 (02:30→15:00)
[2017-05-12] MEDS: CEFAZOLIN SOD 1 GM VIAL IV SCH ×3 (06:47→14:30)
[2017-05-12 08:31] LABS: ANION GAP 15.1 mmol/L (8-16); CALCIUM 9.1 mg/dL (8.4-10.2); CREATININE, SERUM 1.07 mg/dL (0.57-1.11); MAGNESIUM 1.3 MG/DL (1.3-2.1); POTASSIUM 4.1 mmol/L (3.5-5.1)
[2017-05-12] MEDS: FAMOTIDINE 20 MG/2 ML VIAL IV SCH (08:56)
[2017-05-12] MEDS: DORZOLAMIDE/TIMOLOL (OPTH SOL) 10 ML DRPETTE OP SCH (08:56)
[2017-05-12] MEDS: GEMFIBROZIL 600 MG TAB PO SCH (08:56)
[2017-05-12] MEDS: PANTOPRAZOLE 40 MG 10ML VIAL IV SCH (08:56)
--- NOTE | 2017-05-12 12:24 | Diagnostic Imaging Report ---
PROCEDURE:X-RAY ABDOMEN - KUB COMPARISON:None. INDICATIONS:NG TUBE PLACEMENT FINDINGS:Motion artifact limits evaluation. Nasogastric tube tip projects over the expected region of the gastric antrum/pylorus. Bowel gas pattern is nonobstructive though the left flank is incompletely imaged. No sg pneumoperitoneum. Multifocal airspace consolidations are partially visualized, seen to better advantage on comparison chest radiograph 05/11/2017. CONCLUSION: Nasogastric tube tip projects over the expected region of the distal gastric antrum/pylorus. Dictated by: Tapan Motta M.D. on 05/12/2017 at 12:32 Electronically approved by: Tapan Motta M.D. on 05/12/2017 at 12:32
[2017-05-12] MEDS ORDERED: INSULIN LISPRO 100 UNIT/1 ML 3ML VIAL SQ ONE (15:15)
[2017-05-12] MEDS ORDERED: DEXTROSE 50% SYRINGE 50 ML IV PRN (15:15)
[2017-05-12] MEDS ORDERED: INSULIN LISPRO 100 UNIT/1 ML 3ML VIAL SQ SCH (16:30)
[2017-05-12] MEDS ORDERED: MORPHINE SULFATE 2 MG/ML SYR IV PRN (16:30)
[2017-05-12] MEDS ORDERED: SCOPOLAMINE 1.5 MG PATCH TOP ONE (17:00)
[2017-05-12] MEDS ORDERED: INSULIN DETEMIR 100 UNIT/ML PEN SQ SCH (21:00)
[2017-05-12] MEDS: LORAZEPAM INJ 2 MG/ML VIAL IV PRN (23:06)
[2017-05-13] MEDS ORDERED: SCOPOLAMINE 1.5 MG PATCH TOP SCH (10:15)
[2017-05-13] MEDS: LORAZEPAM INJ 2 MG/ML VIAL IV PRN ×2 (10:17→18:01)
[2017-05-13 20:00] VITALS: BP 145/64
[2017-05-13] MEDS ORDERED: LORAZEPAM INJ 2 MG/ML VIAL IV PRN (21:00)
[2017-05-13] MEDS ORDERED: MORPHINE SULFATE 2 MG/ML SYR IV PRN (21:15)
[2017-05-13 22:38] VITALS: BP 145/64
[2017-05-14] VITALS: BP 155/73
[2017-05-14 04:00] VITALS: BP 160/65
[2017-05-14 08:00] VITALS: BP 149/77
--- NOTE | 2017-05-16 03:03 | Discharge Summary ---
FINAL DISCHARGE DIAGNOSES 1. Severe cerebrovascular accident with midline shift. 2. Septic shock. 3. Diabetic ketoacidosis. 4. Community-acquired pneumonia. 5. Acute kidney injury. 6. Do Not Resuscitate and Do Not Intubate. 7. Respiratory failure. 8. Family agreed to hospice care. CONSULTANTS: We had neurology, endocrinology, pulmonary critical care, nephrology, and cardiology. VITAL SIGNS: Temperature is 97.4, pulse 105, respiratory rate 24, blood pressure 149/77, and pulse ox is 94% and she is on 4 L nasal cannula. LAB FINDINGS: White count is 17, hemoglobin 9.2, hematocrit 28, and platelets of 322,000. Blood gases: The pH was 7.5, pCO2 of 39, pO2 of 78, bicarbonate was 32. Chemistry: Sodium 144, potassium 4.1, chloride 104, bicarbonate 29, anion gap of 15, BUN is 40, creatinine is 1, and glucose is 196. Urinalysis was negative. Toxicology screen: Random vancomycin was 10.6. Serology for influenza was negative. Microbiology: Sputum culture consistent with Staphylococcus aureus. Urine culture positive for E. coli. Blood cultures consistent with Staph aureus. Her repeat blood culture showed no growth to date. IMAGING STUDIES: Renal ultrasound showed right kidney 10.cm, left kidney 10.6 cm. No hydronephrosis seen. There is some evidence of some renal medical disease. CT of the chest performed on March 04, 2017, showed multifocal pneumonia. There was a CT brain on April,, that showed acute infarct in the posterior aspect of the left superior frontal gyrus and the left caudate head, CRISSY territory, no hemorrhage. Mild right to left midline shift. Large acute infarct in the left MCA distribution with more than 80% involvement with associated hyper M2 and M3 MCA branches concerning for embolic phenomenon is suspected. HOSPITAL COURSE: This is an 81-year-old female who came in to the ED with elevated glucose levels, found to be in DKA, lactic acidosis, and in respiratory distress, in which the patient was intubated in the ER and further evaluated. Patient was then admitted to the ICU. Pulmonary critical care was consulted. Endocrine was consulted for the patient's DKA and was managed accordingly with insulin drip. Patient was on broad-spectrum antibiotics due to underlying multifocal pneumonia that was found on imaging studies. Nephrology was consulted for the lactic acidosis in which she was on bicarbonate drip, but did not need any hemodialysis. During the ICU stay, the patient became very flaccid and CT brain was performed which showed extensive CVA found in the left MCA distribution as well as acute infarct in the posterior aspect of the left superior frontal gyrus and left caudate head. At that time, neurology was consulted for further evaluation. Neurology discussed overall plan of prognosis with the family and discussed with them the CT head findings and that patient will likely have a very poor prognosis due to the massive midline shift in CT head findings. Family understood the overall neurological state in which palliative care was consulted. In further discussion with the family as well as with palliative care, the family finally agreed to hospice and withdraw all medical care at this time. Patient was then on comfort measures only and was eventually transferred to [facility] on hospice care per family's wishes. On discharge, her vital signs were stable. Labs reviewed and stable. Patient seen, evaluated, and examined thoroughly on the day of discharge with no other changes. Patient will be discharged to hospice care per family's request. MEDICATIONS: See med reconciliation form. DISPOSITION: To longterm with hospice care. CONDITION: Very poor. FOLLOWUP: Patient is to be discharged to longterm on hospice care per family's wishes. VARUN FERRO MD Job#: [id number]
== END 2017-05-14 10:10 | disposition hospice, inpatient (51) | DRG 870 ==
LOC: ER 03:15 → ERHOLD 06:00 → ICU 17:14 → MED/SURG3 05-10 21:17 → ICU 05-10 22:14 → IMCU 05-12 17:15 → MED/SURG3 05-13 16:28
PROVIDERS: ADMIT Internal Medicine; ATTEND Internal Medicine
PROC: 5A1955Z Respiratory Ventilation, Greater than 96 Consecutive Hours (ICD-10-PCS; principal; 2017-05-04)
PROC: 0BH17EZ Insertion of Endotracheal Airway into Trachea, Via Natural or Artificial Opening (ICD-10-PCS; 2017-05-04)
PROC: 02HV33Z Insertion of Infusion Device into Superior Vena Cava, Percutaneous Approach (ICD-10-PCS; 2017-05-04)
DX: A41.01 Sepsis due to Methicillin susceptible Staphylococcus aureus (principal); J96.01 Acute respiratory failure with hypoxia; I63.412 Cerebral infarction due to embolism of left middle cerebral artery; J18.9 Pneumonia, unspecified organism; R65.21 Severe sepsis with septic shock; N17.9 Acute kidney failure, unspecified; E13.10 Other specified diabetes mellitus with ketoacidosis without coma; N18.3 Chronic kidney disease, stage 3 (moderate); E87.2 Acidosis; E87.1 Hypo-osmolality and hyponatremia; G81.01 Flaccid hemiplegia affecting right dominant side; N39.0 Urinary tract infection, site not specified; E86.0 Dehydration; R79.89 Other specified abnormal findings of blood chemistry; Z79.4 Long term (current) use of insulin; D64.9 Anemia, unspecified; Z88.0 Allergy status to penicillin; I12.9 Hypertensive chronic kidney disease with stage 1 through stage 4 chronic kidney disease, or unspecified chronic kidney disease; E11.40 Type 2 diabetes mellitus with diabetic neuropathy, unspecified; E11.22 Type 2 diabetes mellitus with diabetic chronic kidney disease; E11.21 Type 2 diabetes mellitus with diabetic nephropathy; E78.5 Hyperlipidemia, unspecified; Z66 Do not resuscitate; B96.20 Unspecified Escherichia coli [E. coli] as the cause of diseases classified elsewhere; E83.42 Hypomagnesemia
CPT/HCPCS: 31500; 36415; 36556; 36600; 70450; 71010; 71250; 74000; 74470; 76770; 76937; 80048; 80053; 80202; 81001; 82550; 82553; 82805; 82948; 83036; 83605; 83735; 83880; 84100; 84439; 84443; 84484; 85025; 85610; 87040; 87070; 87071; 87086; 87186; 87205; 87400; 93005; 93306; 94002; 94003; 94640; 94660; 96360; 96365; 96374; 97139; 99285; J0690; J1940; J1956; J2060; J2250; J2270; J2405; J2930; J3370; J3475; J3480; J7030; J7050; J7070